=== PATIENT | female | born 1995 | race Caucasian/White ===

== ENCOUNTER 2020-09-13 10:07 | Day surgery (SDC) | payer OTHER, SELFPAY ==
[2020-09-09 13:08] VITALS: BMI 38.9
[2020-09-13] VITALS (8 sets, daily range): BP systolic 97–126; BP diastolic 50–77; PULSE 60–86; RESP 8–18; TEMP 36.2–36.9; O2SAT 95–98; BMI 38.2
[2020-09-13] MEDS: LACTATED RINGERS 1,000 ML 42 ML IV (10:30)
--- NOTE | 2020-09-13 11:01 | PM.HP.1 ---
History of Present Illness History of Present Illness Date Patient Seen: 09/13/20 Time Patient Seen: 11:01 Chief complaint: SDC Narrative: Patient is a 25-year-old 0 with a retained IUD Several failed attempts to remove the IUD in the office. Patient History Medical History (Updated 09/09/20 @ 13:16 by Jolene Pace RN) Depression Surgical History (Updated 10/23/19 @ 20:00 by Jahaira Loza MD) H/O ovarian cystectomy History of tonsillectomy Status post appendectomy Family & Social History Social History: household members spouse Tobacco & Substance use: Tobacco type cannabis/marijuana Smoking Status Current some day smoker alcohol intake current alcohol intake frequency a few times a month Substance Use Type marijuana Meds Home Medications and Allergies Home Medications Medication Instructions Recorded Confirmed Type Mirena 52 mg INTRAU DIRECTED #0 03/13/17 09/13/20 History escitalopram oxalate 20 mg tablet 20 mg PO DAILY 10/23/19 09/13/20 History hydroxyzine HCl 25 mg tablet See Rx Instructions PO .COMPLEX PRN 10/23/19 09/09/20 History lithium carbonate 300 mg 300 mg PO DAILY 10/23/19 09/13/20 History tablet,extended release methylphenidate HCl 36 mg 36 mg PO DAILY 09/07/20 09/13/20 History tablet,extended release 24 hr prazosin 1 mg capsule 1 mg PO BID #30 cap 09/07/20 09/13/20 Rx propranolol 10 mg tablet 10 mg PO BID 09/07/20 09/13/20 History Allergies Allergy/AdvReac Type Severity Reaction Status Date / Time No Known Drug Allergies Allergy Verified 09/13/20 10:27 Exam Vital Signs (past 8 hours): - 09/13/20 10:33 Temperature 97.8 F Pulse Rate 75 Respiratory Rate 14 Blood Pressure 114/77 Pulse Oximetry 95 Oxygen Delivery Method Room Air Narrative Exam Narrative: HEENT: No thyromegaly, no anterior cervical or supraclavicular lymphadenopathy. Lungs:Clear to auscultation bilaterally, no wheezes. Cardiovascular: Regular rate and rhythm, no murmurs, rubs, or gallops. Abdomen: No scars. No hepatosplenomegaly. No masses palpable. External genitalia: Normal Vagina: Normal Cervix: Nulliparous Bimanual exam: 5 Week size anteverted uterus. Mobile. Rectal: No masses. Assessment & Plan Assessment & Plan narrative: Assessment: 25-year-old 0 with a retained IUD Multiple failed attempts to remove the IUD in the office Plan: Hysteroscopic retrieval of the IUD The risks, benefits, and alternatives to the procedure were explained to the patient. The risks including bleeding, infection, and uterine perforation. She understands these risks and agrees to proceed. A full par Q was held and consent form was signed. COVID-19 COVID-19 status: Negative Result date/Date tested (Pos, Neg/Pending): 09/10/20 Time Spent With Patient Time with patient: less than 15 minutes
--- NOTE | 2020-09-13 11:03 | PM.PREOP ---
Pre-operative Note COVID-19 COVID-19 status: Negative Result date/Date tested (Pos, Neg/Pending): 09/10/20 Interval Note History & Physical reviewed/Exam performed by Physician: Yes Changes to H&P: No H&P completed within 30 days and has changed as indicated here:: 09/13/20
[2020-09-13] MEDS: MIDAZOLAM 2 MG/2 ML VIAL IV ×2 (11:20→11:53)
--- NOTE | 2020-09-13 11:26 | SUR.PREOP ---
Pt concented with Dr Chaparro and Dr. Tao. Pt requesting midazolam for high anxiety. Order obtained. Pt medicated with 1mg.
--- NOTE | 2020-09-13 11:54 | SUR.PREOP ---
pt sitting up in bed, alert and orientated. pt requested second dose of anxiety medication. Medication given per order, see MAR. Bed in lowest position and call light given to pt.
--- NOTE | 2020-09-13 13:54 | SUR.OPER ---
Addendum entered by Aspen Schwarz R.N. 09/13/20 13:55: Patients head on foam and gel donut. Original Note: Lithotomy on padded OR bed, head on pillow, arms secured on padded arm boards at <90 degrees abduction. Legs secured in padded yellow fins stirrups.
--- NOTE | 2020-09-13 14:23 | PM.GYNOP.1 ---
Operative Date/Time/Diagnoses Date of procedure: 09/13/20 Time of procedure: 14:23 Pre-op diagnosis: Retained IUD Failed outpatient attempt at removal Post-op diagnosis: same Procedure & Clinicians Procedure: Procedures Operation Date: 09/13/20 11:30 Actual Procedures Side Surgeon p Hysteroscopy, removal of IUD Lora Chaparro MD Indications: Retained IUD Failed attempt at removal as an outpatient Surgeon: Lora Chaparro Anesthesia Type: General (LMA) Operative Notes Findings: Six week size anteverted uterus End of the IUD visible approximately 3 cm into the endocervical canal. The strings were folded up and along the anterior cervical wall Closure Type: not applicable Specimen(s): none Estimated blood loss (mL): 5 Blood products transfused: none Procedure in detail: After informed consent was obtained, the patient was taken to the operating room where she was placed in the dorsal supine position. After adequate LMA general anesthesia was achieved, she was placed in the dorsal lithotomy position, and prepped and draped in the usual sterile fashion. A time-out was performed. A bivalve speculum was placed into the vagina and the anterior lip of the cervix was grasped with a single-tooth tenaculum. The cervical os was sequentially dilated to the # 7 Hegar dilator. The hysteroscope passed easily into the endometrial cavity. The end of the IUD was visualized approximately 3 cm in the endocervical canal. The string was folded along the length of the IUD and close to the anterior cervical wall. Hysteroscope was removed. Several attempts with polyp forceps were unsuccessful at removing the IUD. The IUD hook was then attempted and was unsuccessful at removing the IUD. The cervix was further dilated and the hysteroscope again passed easily into the endometrial cavity. The arms of the IUD were not imbedded in the tompkins of the IUD. The hysteroscope was removed. Using the polyp forceps, going along the anterior cervical wall, the IUD was grasped and removed without difficulty. The instruments were removed from the uterus. The single-tooth tenaculum was removed from the anterior lip of the cervix. There was a small laceration on the anterior cervix. A [id number] suture with 2 0 chromic was placed for hemostasis. The bivalve speculum was removed from the vagina. Sponge, lap, and instrument counts were correct x2. The patient tolerated the procedure well, and was taken to PACU in stable condition. Complications: none Post-operative Condition: stable Disposition: PACU Plan for aftercare: Home after recovery
[2020-09-13] MEDS: OXYCODONE/ACETAMINOPHEN 5/325 TABLET 1 TAB PO (14:46)
[2020-09-13] MEDS: KETOROLAC 30 MG/ML VIAL IV (14:49)
== END 2020-09-13 15:23 | disposition home or self-care (01) ==
PROVIDERS: Family Provider Obstetrics & Gynecology; PCP Family Medicine; Referring Provider Obstetrics & Gynecology; Visit Provider Obstetrics & Gynecology
PROC: 0UDB8ZZ Extraction of Endometrium, Via Natural or Artificial Opening Endoscopic (ICD-10-PCS; CPT 58558; principal; 2020-09-13 11:30)
DX: T83.39XA Other mechanical complication of intrauterine contraceptive device, initial encounter (principal); F32.9 Major depressive disorder, single episode, unspecified; F41.9 Anxiety disorder, unspecified
CPT/HCPCS: 58301; J1100; J1885; J2250; J2405; J2704; J3010

== ENCOUNTER → 2020-11-15 08:47 | Outpatient (CLI) | payer OTHER, SELFPAY ==
--- NOTE | 2020-11-15 08:48 | DI.RAD.S_ITS ---
PROCEDURE: HL HYSTEROSAPINGOGRAPHY INDICATIONS: Infertility, Check patency of remaning tube COMPARISON: None. FINDINGS: Patient had a documented negative test prior to the study. Following speculum insertion, a balloon-tip catheter was inserted into the cervical canal, and secured by inflating the balloon. Contrast was then injected into the endometrial canal. Uterus: The uterine cavity appears normal in size and morphology, without synechiae or masses. Fallopian tubes: The left fallopian tube fills with contrast, and appears normal in caliber and morphology. There is ready dispersion of contrast into the peritoneal cavity. The right fallopian tube is not seen and presumably absent/occluded. IMPRESSION: Patent left fallopian tube. Dictated by: Socrates Simmons M.D. on 11/15/2020 at 11:00 Approved by: Socrates Simmons M.D. on 11/15/2020 at 11:01
--- NOTE | 2020-11-19 15:05 | P.PCN_ITS ---
Procedures Date/Time Date of procedure: 11/15/20 Time of procedure: 09:00 General Procedure description: Hysterosalpingogram After informed consent was obtained, the patient was placed on the fluoroscopy table. An overturned bedpan was placed under her bottom. An open-sided speculum was placed into the vagina. The cervix was cleaned x3 with Betadine. A single-tooth tenaculum was placed on the anterior lip of the cervix. The hysterosalpingogram catheter passed easily into the endometrial cavity. 3 cc with of air were injected into the balloon. The open sided speculum was removed from the vagina. 15 cc Optiray 300 were injected. Under fluoroscopic examination the contours of the uterus were normal. There was spill almost immediately from the left tube. The right tube had previously been removed. The remainder of the Optiray contrast was removed from the uterus. The single- tooth tenaculum was removed from the anterior lip of the cervix. The patient was taken out of the pelvic tilt. She tolerated the procedure well. Complications: none
== END ==
PROVIDERS: Family Provider Obstetrics & Gynecology; PCP Family Medicine; Referring Provider Obstetrics & Gynecology; Visit Provider Obstetrics & Gynecology
DX: N97.9 Female infertility, unspecified (principal); N73.6 Female pelvic peritoneal adhesions (postinfective)
CPT/HCPCS: 58340; 74740